=== PATIENT | female | born 1940 | race Caucasian/White ===

== ENCOUNTER → 2016-10-07 | Outpatient (CLI) | payer OTHER ==
[~2016-10-07] MED LIST: ASPCH81; ASPI-435 PO; ATEN-173 PO; ATOR-22 PO
[2016-10-07 12:45] LABS: ALT/SGPT 32 U/L (12-78); BLOOD UREA NITROGEN 17 mg/dl (7-18); BUN/CREATININE RATIO 18.3 (10-20); CARBON DIOXIDE 29 mmol/L (21-32); CHLORIDE 107 mmol/L (98-107); CHOLESTEROL 208 mg/dl (0-200); CREATININE 0.93 mg/dl (0.60-1.20); GLUCOSE 87 mg/dl (70-99); POTASSIUM 4.2 mmol/L (3.5-5.1); SODIUM 142 mmol/L (136-145); TRIGLYCERIDES 174 mg/dl (0-150); VERY LOW DENSITY LIPOPROT CALC 35 mg/dl
[2016-10-07 12:50] LABS: ALKALINE PHOSPHATASE 87 U/L (45-117); AST/SGOT 30 U/L (15-37); CHOLESTEROL/HDL RATIO 4.1; HDL CHOLESTEROL 51 mg/dl; LDL CHOLESTEROL CALCULATED 122 mg/dl
== END | disposition home or self-care (01) ==
LOC: C.LABBFT 10:10
PROVIDERS: ATTEND Nurse Practitioner
DX: E78.5 Hyperlipidemia, unspecified (principal); R31.29 Other microscopic hematuria

== ENCOUNTER → 2016-10-08 | Outpatient (CLI) | payer OTHER ==
[2016-10-08 13:33] LABS: URINE APPEARANCE CLEAR (CLEAR); URINE BILIRUBIN NEG (NEG); URINE COLOR YELLOW; URINE EPITHELIAL CELL AUTO 0-5 /lpf (0-5); URINE NITRITE NEG (NEG); UROBILINOGEN NEG (NEG)
[2016-10-08 13:34] LABS: MANUAL MICROSCOPIC REQUIRED? NO; REVIEW REQ? NO
--- NOTE | 2016-10-09 13:32 | CODING QUERY NO DIAGNOSIS ---
: 1940 TREATMENT RENDERED WITHOUT A DIAGNOSIS To promote full compliance with coding requirements relating to patient care, physician participation is requested in all cases of meteorology faculty member uncertainty. Please assist us with providing a diagnosis/symptom for the test(s) below: A diagnosis/symptom was not documented on your Order. A valid diagnosis/symptom is required to bill all insurances. Please remember that we are unable to code a diagnosis of rule out, probable, possible, questionable, or suspected. Tests that require a diagnosis: *UA CLEAN CATCH DOS: 10/08/16 DIAGNOSIS: Provider Signature: Date: Thank you Arlen Bee Health Information Management Once completed, please kindly fax back to [phone] For questions please call [phone]
== END | disposition home or self-care (01) ==
LOC: C.LABSPEC 12:51
PROVIDERS: ATTEND Nurse Practitioner
DX: I10 Essential (primary) hypertension (principal); R31.29 Other microscopic hematuria

== ENCOUNTER 2017-03-10 17:13 | Emergency (ER) | payer OTHER ==
[~2017-03-10] VITALS: Ht 154.9 cm; Wt 67.1 kg
[~2017-03-10 17:13] MED LIST changes: -ASPI-435 PO
[2017-03-10 17:15] VITALS: Ht 154.9 cm; Wt 67.1 kg
[2017-03-10] MEDS ORDERED: PROPARACAINE HCL 0.5% OP SOLN 15 ML BTL OP STA (17:24)
[2017-03-10] MEDS ORDERED: ASPI-435 PO (17:40)
--- NOTE | 2017-03-10 18:45 | EMERGENCY ROOM VISIT NOTE ---
History First contact with patient: 17:19 Chief Complaint: EYE ASSESSMENT Stated Complaint: INSULATION IN EYE History of Present Illness The patient is a 76 year old female who presents to the Emergency Room via private vehicle with complaints of "insulation in eye". The patient states that approximately 2 hours prior to arrival, she was at her home and was working on a project when she was concerned she got insulation in her eye. She then went to touch her eye and felt something go in her eye. She notes left superior eyelid irritation that feels like it's underneath the eyelid. She denies any pain but notes it's just an irritation. Feels like a scratch on the eye. The insulation color was yellow. Her tetanus is up-to-date. She denies any visual troubles. Review of Systems A complete 6-point Review of Systems was discussed with the patient, with pertinent positives and negatives listed in the History of Present Illness. All remaining Review of Systems questions can be considered negative unless otherwise specified. Past Medical/Surgical History Medical Problems: (1) Aortic regurgitation (2) Appendectomy (3) Hypercholesterolemia Family History Cancer Diabetes mellitus FHx: dementia Heart disease Hypertension Lung disease Social History Smoking Status: Never Smoker Alcohol Use: none Drug Use: none Marital Status: Housing Status: lives alone Occupation Status: retired Current/Historical Medications Scheduled Aspirin (Aspirin 81), 81 MG PO DAILY Atenolol (Tenormin), 25 MG PO DAILY Atorvastatin (Lipitor), 20 MG PO DAILY Allergies Uncoded Allergies: SOFT GELS (Allergy, Intermediate, STOMACH UPSET, MOUTH SORE, 12/02/15) Physical Exam Vital Signs Date Time Temp Pulse Resp B/P (MAP) Pulse Ox O2 Delivery O2 Flow Rate FiO2 03/10/17 19:39 36.7 80 20 190/71 95 03/10/17 19:13 80 20 190/71 03/10/17 17:15 36.7 68 18 175/75 95 Room Air Right Eye Acuity: 20/20 with correction Left Eye Acuity: 20/25 with correction Physical Exam VITAL SIGNS - Vital signs and nursing notes were reviewed. Patient is afebrile , hypertensive at 175/75, non-tachycardic and is saturating well on room air 95% . GENERAL -76-year-old female appearing her stated age. Communicates well with provider and answers questions appropriately. HEAD - Normocephalic, Atraumatic. No Bustamante's Sign or Raccoon's Eyes. No depressed skull fractures palpable. EYES - PERRL with EOMI bilaterally. Sclera without noticeable foreign body or excoriations. No injection noted in the left eye. Without subconjunctival hemorrhage. Palpebral conjunctiva pink and moist with no injection or discharge noted. Slit lamp examination performed as further described. Slit Lamp Examination was performed of the left eye(s). Alcaine drops were applied to the affected eye(s) for proper anesthetization. The affected eye(s) were stained with Fluorescein stain to precipitate adequate visualization of any conjunctival/scleral excoriations or ulcers. The patient's face was comfortably rested on the chin guard of the slit lamp apparatus. The lights were dimmed and the affected eye(s) were thoroughly examined under microscopy using the blue light. No uptake was present in the left eye. Additionally, the eye(s) were examined under microscopy using the regular light. Close examination revealed no abnormalities. Patient tolerated the procedure well and no complications were met. Medical Decision & Procedures Medications Administered Medications (Trade) Dose Ordered Sig/Shelley Route Start Time Stop Time Status Last Admin Dose Admin Proparacaine HCl (Alcaine 0.5% Oph Soln) 2 drops NOW STAT OP 03/10/17 17:24 03/10/17 17:25 DC 03/10/17 17:33 2 DROPS Medical Decision Patient presents to us today with irritation of the left superior eyelid. She states it feels as if the irritation is under the left eye lid. Consent was obtained, eyelids of the left eye were everted and were unremarkable. I examination was unremarkable. Slit lamp exam was unremarkable. Her visual acuity was excellent. I suspect that she likely had a small piece of fiberglass and to the eye and poked the left eyelid but has likely rinsed out. She rinsed her eye at home. To be safe, I do believe is reasonable to installing Rohit lens and instill 1 L of normal saline to irrigate the eye. Throughout this the patient noted irritation, and I certainly offered to stop however she noted to persist. The full liter was irrigated in the eye, and she was also evaluated by my attending. She was reevaluated and noted that she was feeling anxious during the irrigation. Her blood pressure then had gone up, and was rechecked and was still found to be elevated. She stated that she felt no symptoms of this, and denies chest pain or shortness of breath. I suspect this is likely secondary to the brief amount of anxiety she experienced during the Rohit lens. She this time appears stable for discharge, and I discussed with my attending whether or not to instill antibiotics prophylactically, and the decision was made to hold. She was educated to use saline drops in the eye for lubrication. The patient at this time appears stable for discharge, was educated upon management, educated upon the importance of follow-up with her eye doctor and if she is unable to schedule follow-up she was provided with the on-call number, and was certainly invited back to the emergency department with any new/concerning symptoms. I again suspect she is likely experiencing irritation of the left eyelid secondary to acute trauma. I do not suspect any emergent abnormalities at this time. She is to follow up for the elevated blood pressure. IMPRESSION: Eye Pain In the evaluation and treatment of this patient, the following differential diagnoses were considered: Corneal Abrasion, Conjunctivitis, Eye Contusion, Globe Injury, Orbital Floor Injury (Blowout Fracture), Corneal Ulcer, Keratitis , Herpes Zoster Opthalmic, Blepharitis, Orbital Cellulitis, Iritis, Scleritis/ Episcleritis, Uveitis, Temporal Arteritis, Subconjunctival Hemorrhage. Impression Primary Impression: Eye irritation Departure Information Dispostion Home / Self-Care Condition GOOD Referrals Kirit Finn M.D. (PCP) Mekhi England M.D. Patient Instructions My New [facility] Additional Instructions You have been treated in the Emergency Department for left eye irritation after insulation exposure. For pain control, you can use the following [id number] medicines (if >12 yo): - Regular strength (325mg/tab) Tylenol (acetaminophen) 2 tabs every 4-6 hours as needed. Do not exceed 12 tablets in a 24 hour period. Avoid taking more than 3 grams (3000 mg) of Tylenol per day. This includes any other sources of acetaminophen you may take on a regular basis. - Regular strength (200 mg/tab) Advil (ibuprofen) 1-2 tabs every 4-6 hours as needed. Do not exceed a dose of 3200 mg per day. Avoid rubbing your eyes for the next few days as this can cause irritation. Wear sunglasses when outside to help minimize your pain. You should relax in a quiet, dark room to help minimize your symptoms. You should seek evaluation of your left eye irritation by an horizontal boring mill operator following your visit to the Emergency Department. The Emergency Department is not capable of treating optic issues long-term. You should call your horizontal boring mill operator as soon as possible to make an appointment for evaluation of your follow-up care. Return to the emergency department if you develop the following symptoms despite treatment course outlined above: blurry vision, loss of vision, fever, intractable pain, increased redness, swelling, or purulent discharge. Please follow-up with your family doctor for elevated blood pressure. Please obtain the emergency department with any new/concerning symptoms.
[2017-03-10 19:39] VITALS: BP 190/71; PULSE 80; TEMP 36.7; O2SAT 95
--- NOTE | 2017-03-11 00:01 | EMERGENCY ROOM VISIT NOTE ---
ED Visit Note First contact with patient: 17:19 I have personally seen and evaluated the patient with the PA. I agree with the diagnosis and management decisions and have been personally involved in the case. Please see Jeremy Carnes PA-C's notes for further details of the history, physical and visit.
== END 2017-03-10 19:40 | disposition home or self-care (01) ==
LOC: C.EDB 17:14 → C.EDD 19:40
DX: H57.8 Other specified disorders of eye and adnexa (principal); H57.12 Ocular pain, left eye; I35.1 Nonrheumatic aortic (valve) insufficiency; E78.00 Pure hypercholesterolemia, unspecified; Z80.9 Family history of malignant neoplasm, unspecified; Z83.3 Family history of diabetes mellitus; Z82.49 Family history of ischemic heart disease and other diseases of the circulatory system; Z83.6 Family history of other diseases of the respiratory system; Z79.82 Long term (current) use of aspirin; Z79.899 Other long term (current) drug therapy

== ENCOUNTER → 2017-03-19 | Outpatient (CLI) | payer OTHER ==
[~2017-03-19] MED LIST changes: -ASPCH81; +ASPI-435 PO
[2017-03-19 12:42] LABS: ALT/SGPT 25 U/L (12-78); BLOOD UREA NITROGEN 18 mg/dl (7-18); BUN/CREATININE RATIO 16.4 (10-20); CARBON DIOXIDE 27 mmol/L (21-32); CHLORIDE 109 mmol/L (98-107); CHOLESTEROL 203 mg/dl (0-200); GLUCOSE 91 mg/dl (70-99); POTASSIUM 4.5 mmol/L (3.5-5.1); SODIUM 142 mmol/L (136-145); TRIGLYCERIDES 239 mg/dl (0-150); VERY LOW DENSITY LIPOPROT CALC 48 mg/dl
[2017-03-19 12:46] LABS: ALKALINE PHOSPHATASE 90 U/L (45-117); AST/SGOT 28 U/L (15-37); CHOLESTEROL/HDL RATIO 4.3; HDL CHOLESTEROL 47 mg/dl; LDL CHOLESTEROL CALCULATED 108 mg/dl
[2017-03-19 12:49] LABS: CALCIUM 9.2 mg/dl (8.5-10.1)
== END | disposition home or self-care (01) ==
LOC: C.LABBFT 09:21
PROVIDERS: ATTEND Nurse Practitioner
DX: E78.5 Hyperlipidemia, unspecified (principal); M85.80 Other specified disorders of bone density and structure, unspecified site

== ENCOUNTER → 2017-04-18 | Outpatient (CLI) | payer OTHER ==
--- NOTE | 2017-04-18 12:19 | MAMMOGRAPHY REPORT ---
BILATERAL DIGITAL SCREENING MAMMOGRAM WITH CAD: 04/18/2017 CLINICAL HISTORY: Routine screening. Patient has no complaints. TECHNIQUE: Bilateral CC and MLO views were obtained. Current study was also evaluated with a Compute r Aided Detection (CAD) system. COMPARISON: Comparison is made to exams dated: 04/10/2016 mammogram, 04/06/2015 mammogram, 03/29/2014 rosalind mogram, 03/23/2013 mammogram, 03/17/2012 mammogram, and 03/11/2011 mammogram - [facility]. BREAST COMPOSITION: There are scattered areas of fibroglandular density in both breasts. FINDINGS: An asymmetry in the lateral right breast is stable dating back to 03/17/2012. In the 2010 exam there was a circumscribed mass associated with the asymmetry which has since resolved, most like ly represented a fluctuating cyst. There are mild vascular calcifications bilaterally. No new suspi cious mass, architectural distortion or cluster of microcalcifications is seen. IMPRESSION: ACR BI-RADS CATEGORY 1: NEGATIVE There is no mammographic evidence of malignancy. A 1 year screening mammogram is recommended. The pa tient will receive written notification of the results. Approximately 10% of breast cancers are not detected with mammography. A negative mammographic report should not delay biopsy if a clinically suggestive mass is present. Eloisa Reich M.D. ay/:04/18/2017 09:56:41 Blanket Cutting Machine Operator: Jesika GLEASON)(Laura), [facility] letter sent: Normal 1/2 BI-RADS Code: ACR BI-RADS Category 1: Negative
== END | disposition home or self-care (01) ==
LOC: C.MAMM 08:44
PROVIDERS: ATTEND Internal Medicine
DX: Z12.31 Encounter for screening mammogram for malignant neoplasm of breast (principal)

== ENCOUNTER → 2017-09-18 | Outpatient (CLI) | payer OTHER ==
[2017-09-18 12:59] LABS: LYME DISEASE AB IGG NEG (NEG)
[2017-09-18 13:01] LABS: LYME DISEASE AB IGM EQUIVOCAL (NEG)
[2017-09-24 09:51] LABS: 18KDIGG BAND NONREACTIVE (NONREACTIVE); 23KDIGG BAND NONREACTIVE (NONREACTIVE); 23KDIGM BAND NONREACTIVE (NONREACTIVE); 28KDIGG BAND NONREACTIVE (NONREACTIVE); 30KDIGG BAND NONREACTIVE (NONREACTIVE); 39KDIGG BAND NONREACTIVE (NONREACTIVE); 39KDIGM BAND NONREACTIVE (NONREACTIVE); 41KDIGG BAND NONREACTIVE (NONREACTIVE); 41KDIGM BAND NONREACTIVE (NONREACTIVE); 45KDIGG BAND NONREACTIVE (NONREACTIVE); 58KDIGG BAND NONREACTIVE (NONREACTIVE); 66KDIGG BAND NONREACTIVE (NONREACTIVE); 93KDIGG BAND NONREACTIVE (NONREACTIVE)
== END | disposition home or self-care (01) ==
LOC: C.LABBFT 10:50
PROVIDERS: ATTEND Physician Assistant Medical
DX: E78.5 Hyperlipidemia, unspecified (principal); E55.9 Vitamin D deficiency, unspecified; I10 Essential (primary) hypertension; R21 Rash and other nonspecific skin eruption

== ENCOUNTER → 2017-10-16 | Outpatient (CLI) | payer OTHER ==
[2017-10-16 12:50] LABS: BASO ABS # 0.06 K/uL (0-0.2); EOS ABS # 0.36 K/uL (0-0.5); HEMATOCRIT 45.7 % (37-47); HEMOGLOBIN 15.5 g/dL (12.0-16.0); IG# 0.01 K/uL (0.00-0.02); LYMPH % 31.6 %; MEAN CELL VOLUME 91.2 fL (80-100); MEAN CORPUSCULAR HEMOGLOBIN 30.9 pg (25-34); MEAN CORPUSCULAR HGB CONC 33.9 g/dl (32-36); MEAN PLATELET VOLUME 9.4 fL (7.4-10.4); MONO % 7.5 %; MONO ABS # 0.45 K/uL (0.11-0.59); NEUT % 53.7 %; NEUT ABS # 3.23 K/uL (1.4-6.5); PLATELET COUNT 298 K/uL (130-400); RED CELL DISTRIBUTION WIDTH SD 43.2 fL (36.4-46.3); WHITE BLOOD COUNT 6.01 K/uL (4.8-10.8)
== END | disposition home or self-care (01) ==
LOC: C.LABBFT 09:16
PROVIDERS: ATTEND Internal Medicine
DX: E78.5 Hyperlipidemia, unspecified (principal); I10 Essential (primary) hypertension; M85.80 Other specified disorders of bone density and structure, unspecified site; E55.9 Vitamin D deficiency, unspecified

== ENCOUNTER → 2017-10-23 | Outpatient (CLI) | payer OTHER | END | disposition home or self-care (01) | LOC: C.PAPS 12:41 | PROVIDERS: ATTEND Nurse Practitioner | DX: Z00.00 Encounter for general adult medical examination without abnormal findings (principal); Z12.4 Encounter for screening for malignant neoplasm of cervix ==

== ENCOUNTER → 2017-10-23 | Outpatient (CLI) | payer OTHER | END | disposition home or self-care (01) | LOC: C.LABBFT 11:18 | PROVIDERS: ATTEND Nurse Practitioner | DX: R63.5 Abnormal weight gain (principal) ==

== ENCOUNTER → 2017-11-14 | Outpatient (CLI) | payer OTHER ==
--- NOTE | 2017-11-14 09:49 | DIAGNOSTIC IMAGING REPORT ---
R PELVIS/UNILATERAL HIP 2-3VIEWS HISTORY: 77 years-old Female RIGHT HIP PAIN acute right hip pain COMPARISON: None available TECHNIQUE: AP view of the pelvis with 2 views of the right hip FINDINGS: Mild degenerative changes are seen within the bilateral femoral acetabular joints. Degenerative changes are noted within the imaged lower lumbar spine, pubic symphysis and SI joints as well. There is no acute fracture or subluxation identified. Imaged right femur appears intact. Punctate calcifications of the lower pelvis suggest phleboliths. IMPRESSION: Mild degenerative changes about the bilateral hips without acute fracture or dislocation. The above report was generated using voice recognition software. It may contain grammatical, syntax or spelling errors. Electronically signed by: Tony Jernigan M.D. 11/14/2017 9:47 AM Dictated Date/Time: 11/14/2017 9:38 AM
== END | disposition home or self-care (01) ==
LOC: C.RAD1850 09:28
PROVIDERS: ATTEND Nurse Practitioner
DX: M25.551 Pain in right hip (principal)

== ENCOUNTER → 2018-05-07 | Outpatient (CLI) | payer OTHER ==
[~2018-05-07] MED LIST changes: +AMOX500C3 PO
== END | disposition home or self-care (01) ==
LOC: C.LABBFT 14:13
PROVIDERS: ATTEND Internal Medicine
DX: T14.8XXA Other injury of unspecified body region, initial encounter (principal); W57.XXXA Bitten or stung by nonvenomous insect and other nonvenomous arthropods, initial encounter

== ENCOUNTER 2021-02-01 07:51 | Observation (INO) ==
--- NOTE | 2021-01-09 15:19 | PAT Medication Instructions ---
Medication Instructions Date of Service January 09, 2021 Home Medications Medication Instructions Recorded lisinopril 5 mg tablet 5 mg PO DAILY #30 tab 10/16/20 atenolol 25 mg tablet 25 mg PO HS #90 tab 12/21/20 cholecalciferol (vitamin D3) 50 mcg (2,000 unit) tablet 2,000 units PO HS aspirin [Aspirin Low Dose] 81 mg PO HS lisinopril 5 mg tablet 5 mg PO DAILY atenolol 25 mg tablet 25 mg PO HS acetaminophen [Tylenol] 325 mg PO QID PRN atorvastatin 10 mg PO UD Continue as directed atorvastatin 10 mg PO UD DO NOT take the morning of surgery lisinopril 5 mg tablet 5 mg PO DAILY Take morning of surgery With a small sip of water, OTHERWISE NOTHING TO EAT OR DRINK AFTER MIDNIGHT: acetaminophen [Tylenol] 325 mg PO QID PRN (okay to take up to 4 hours prior to surgery if needed) Take evening before surgery cholecalciferol (vitamin D3) 50 mcg (2,000 unit) tablet 2,000 units PO HS aspirin [Aspirin Low Dose] 81 mg PO HS atenolol 25 mg tablet 25 mg PO HS acetaminophen [Tylenol] 325 mg PO QID PRN (if needed) Other Notes If you have any questions please call us at [phone] or [phone] or [phone] or [phone]
--- NOTE | 2021-01-10 14:09 | Anesthesiology Consultation ---
Date of Service January 10, 2021 Assessment & Plan (1) Encounter for pre-operative examination: Chart Review Chart Review: Pending: Refer to Additional Notes / Consult section (pending surgeon ordered PCP/cardio clearance, UA, and preop Covid testing ) and Patient seen in Pre Admission Testing Awaiting surgeon ordered PCP (01/15) and cardio (01/11) clearances Pt could not void at PAT - pt given orders and supplies and will drop off UA on 01/11/21 Per [facility] appt on 01/10/21, pt resides in [facility]. Denies recent travel. Uses PPE. Did receive first Covid vaccine. No known Covid positive contacts or Covid related symptoms. Pt denies any known Covid infection in the past 90 days. Educated patient to follow up with surgeon's office regarding Covid testing. Educated on importance of self quarantining, social distancing and wearing mask in public both for the patient and household contacts. Teaching & Discussion Pre-Anesthesia Teaching/Discussion Notes: Instructed NPO after midnight before surgery,except medications with 15 cc of water. Medication instructions provided according to the [facility] guidelines. History Surgery Operation Date: 02/01/21 10:35 Proposed Procedures p Right Total Hip Arthroplasty - George Wolf MD Height/Weight Height: 5 ft 1 in Weight: 67.5 kg Allergies Allergy/AdvReac Type Severity Reaction Status Date / Time amoxicillin AdvReac Mild Nausea Verified 01/09/21 14:02 Medications Home Medications Medication Instructions Recorded Confirmed Last Taken cholecalciferol (vitamin D3) 50 2,000 units PO HS #30 tab 03/02/19 01/09/21 10/05/20 mcg (2,000 unit) tablet aspirin [Aspirin Low Dose] 81 mg PO HS 06/28/19 01/09/21 10/05/20 lisinopril 5 mg tablet 5 mg PO DAILY #30 tab 10/16/20 01/09/21 Unknown atenolol 25 mg tablet 25 mg PO HS #90 tab 12/21/20 01/09/21 Unknown acetaminophen [Tylenol] 325 mg PO QID PRN 01/09/21 01/09/21 Unknown Past Medical History Medical History Aortic regurgitation Follows with Dr. Arce. Mild AR per 05/10/20 ECHO GERD (gastroesophageal reflux disease) Only with certain with medications Hyperlipidemia No currently taking statin - PCP aware per patient Hypertension Osteoarthritis Osteopenia Exercise / Class Metabolic Activity III < 4 Walking/Shop/Light housework (no chest pain or SOB with flat surface ambulation ) Past Family History Family History Mother Breast cancer Father Dementia Grandmother (Maternal) Myocardial infarction Denies family history of Ovarian cancer Prostate cancer Colorectal cancer Past Surgical History Surgical History History of colonoscopy History of left cataract surgery Hx of tonsillectomy Hx of tubal ligation S/P appendectomy Past Anesthesia History No Hx of Anesthesia Complications (with exception to cataract surgery (2019- feels she had memory issues afterwards ) and No Family Hx of Anesthesia Complications History of PONV No Hx of PONV and No Hx of Motion Sickness Social History Smoking Status: Never smoker Do You Dip or Chew Tobacco: No Hx Alcohol Use: No Hx Substance Use: No substance use type: does not use Review of Systems Occ cough secondary to post nasal drip - no current issues Occ reflux - secondary to medications Patient denies chest pain, shortness of breath, dyspnea on exertion, wheezing, palpitations. No hx of seizures, stroke, CT, apnea/snoring. No hx of blood clots or blood transfusions Physical Exam Vital Signs VITALS BP 140/63 P 66 TEMP 98.2 SP02 95% RESP 16 Constitutional no acute distress ENMT Mouth: no TMJ clicking Thyromental Distance: > or= 3.5 Finger Breadths (3.5) Mallampati Class: I Crowns to top front teeth Partial upper denture Missing molars Neck neck extension not limited Respiratory normal respiratory effort; no respiratory distress Auscultation: lungs clear to auscultation bilaterally; no wheezes Cardiovascular Rate/Rhythm: regular rate and regular rhythm Heart Sounds: no murmur Vessels: no carotid bruit Musculoskeletal Spine: no pain with cervical ROM Extremities: extremities normal to inspection Psychiatric Orientation: alert Testing Laboratory Results 01/10/21 14:35 01/10/21 14:35 PT 10.3 Seconds (9.0-12.0) 01/10/21 14:35 INR 1.0 (0.9-1.1) 01/10/21 14:35 Blood Type AB Positive 01/10/21 14:35 Antibody Screen NEGATIVE 01/10/21 14:35 Electrocardiogram Date: 10/06/20 Findings: + NSR @ (74bpm) Moderate voltage criteria LVH, may be normal variant. No significant change from July 22, 2019 per cardio. Chest X-Ray Date: 10/06/20 The heart is normal in size. There is aortic tortuosity. There is mild diffuse interstitial thickening. There is no focal pulmonary consolidation. There are no significant pleural effusions Echocardiogram Date: 05/08/20 EF: 65-70% LV Function: normal RWMA: + none Other Findings: + diastolic dysfunction (Grade I ) Valvular Disease: + AI (mild) Mild TR. Mild CO. No significant change from 04/02/17 study. Other Testing Neck CTA 10/06/20= No evidence of hemodynamically significant carotid or vertebral artery stenosis. No evidence of dissection.
[2021-01-10 14:56] LABS: Basophils # (auto) 0.02 K/uL (0-0.2); Basophils % (auto) 0.3 %; Eosinophils % (auto) 1.4 %; Hematocrit (blood only) 42.8 % (37-47); Hemoglobin 14.5 g/dL (12.0-16.0); Immature Granulocytes # (auto) 0.01 K/uL (0.00-0.02); Immature Granulocytes % (auto) 0.1 %; Lymphocytes # (auto) 2.14 K/uL (1.2-3.4); Mean Corpuscular Hemoglobin 30.1 pg (25-34); Mean Corpuscular Hgb Conc 33.9 g/dL (32-36); Mean Corpuscular Volume 88.8 fL (80-100); Mean Platelet Volume 8.9 fL (7.4-10.4); Monocytes % (auto) 4.1 %; Neutrophils % (auto) 65.1 %; Platelet Count 288 K/uL (130-400); RDW Coefficient of Variation 13.3 % (11.5-14.5); RDW Standard Deviation 43.5 fL (36.4-46.3); Red Blood Count 4.82 M/uL (4.2-5.4); White Blood Count 7.37 K/uL (4.8-10.8)
[2021-01-10 15:09] LABS: Prothrombin Time 10.3 Seconds (9.0-12.0)
--- NOTE | 2021-01-10 15:35 | History & Physical Report ---
Date of Service January 10, 2021 Assessment & Plan Admission and Anticipated Discharge Date Admission Date: PRE-OP Diagnosis: Right hip osteoarthritis Planned Procedure: Right total hip arthroplasty Plan: Patient is scheduled to undergo this procedure at the [facility] with Dr. George Wolf on February 01, 2021. Risks and complications of the procedure such as: Infection, bleeding, pain, scarring, nerve blood vessel damage, weakness, wound problems, stiffness, incomplete relief of symptoms, hardware failure, hardware loosening, wear, fracture, tendon or ligament injury, dislocation, leg length inequality, blood clots, embolism, heart attack, stroke and were explained to the patient at her visit on February [address] Wolf. Informed consent form the procedure was obtained. Patient also understands risks of proceeding with surgical intervention during the COVID-19 pandemic. Currently she is asymptomatic and understands that she will need to be tested 1 week prior to surgery. Patient states that she has an appointment with [facility] physician group cardiology tomorrow for clearance and is scheduled to meet with her primary care provider Dr. Finn on January 15 for preoperative clearance as well. She has a scheduled appointment with anesthesia at the hospital after her appointment with me this morning and while there she will obtain a CBC with differential, complete metabolic panel, PT/INR, blood type and screen, urinalysis, urine culture and sensitivity, EKG, hemoglobin A1c and a nasal culture for MRSA. During today's visit we reviewed the total hip packet, discussed discharge planning, talked about antibiotic prophylaxis before dental procedures. I provided patient with paperwork to obtain a handicap placard for her vehicle. Discussed lectures offered by [facility] in regards to joint replacement surgery via a Zoom meeting. We reviewed total hip precautions, talked about abduction pillow use. Advised the patient she will need to obtain a standard walker, a raised toilet seat, shower chair and a total hip kit. She states that she will need orders for these and will obtain them at [facility]. I advised the patient she will be discharged from the hospital with the narcotic pain medication, and anti- inflammatory. I also educated her about the use of baby aspirin twice daily for DVT prophylaxis, and use of [id number] strength Tylenol for supplemental pain control following surgery. Patient states she will most likely obtain in- home physical therapy for the first 2 weeks postoperatively. After her visit with me on February 16 at 1:30 PM we will implement outpatient physical therapy and provide her with her rehab protocol. Patient verbalized understanding of all information provided during today's visit. She thanks for the care that she received. If she has questions or concerns prior to her surgery, she will contact the clinic. History of Present Illness Chief Complaint: Chief Complaint: Right hip pain Primary Care Provider: Kirit Finn MD History of Present Illness (including history relevant to procedure): This 80-year-old female presents the clinic today for preoperative history and physical. The patient is very active shoveling snow, mowing lawn, and exercising. She enjoys going out in the [place]. She says about a 2 and half ago, she started getting pain in her groin. This is progressively worsening. Over the past year, she has developed some burning in the medial aspect of her right thigh. She says a couple times per week when she is walking, she will feel like her leg is going to give out. It also bothers her getting up from sitting position. She has some difficulty navigating steps. She has continued to be active despite this. She takes Advil as she has found that this is more effective than Tylenol. However, she does not like to take a lot of medications , so only does this sparingly. She has been to physical therapy in the past, but felt like that was not really helping. Since the last visit, she says her symptoms are worsening. Continues to have predominantly groin pain. It is affecting her activities of daily living. She would like to proceed with a hip replacement. Review Of Systems: A 14 point review systems performed is unremarkable except for those things previously stated in the HPI and past medical history. Past Medical History: Problems: Pre-op exam Arthritis of right hip Plica of knee Right knee pain Hypertension Hyperlipidemia Heart murmur Procedure History Procedure Procedure Date Comments Cataract surgery 2019 - bilateral Appendectomy 1956 Allergies and Sensitivities: NKA Family history: Heart disease, hypertension, cancer and diabetes Social history: Completely unremarkable Current Home Meds: (Last Updated 01/10 11:03) aspirin (Aspirin Low Strength 81 mg oral enteric coated tablet) 81 mg PO Daily atenolol (atenolol 25 mg oral tablet) 25 mg PO Daily atorvastatin (Lipitor 20 mg oral tablet) 40 mg PO Daily cholecalciferol (Vitamin D3) takes one daily ibuprofen lisinopril Initial Wt: 01/10 68.0 kg 150 lb Allergies Allergy/AdvReac Type Severity Reaction Status Date / Time amoxicillin AdvReac Mild Nausea Verified 01/09/21 14:02 Home Medications Medication Instructions Recorded Confirmed Type cholecalciferol (vitamin D3) 50 2,000 units PO HS #30 tab 03/02/19 01/09/21 History mcg (2,000 unit) tablet aspirin [Aspirin Low Dose] 81 mg PO HS 06/28/19 01/09/21 History lisinopril 5 mg tablet 5 mg PO DAILY #30 tab 10/16/20 01/09/21 Rx atenolol 25 mg tablet 25 mg PO HS #90 tab 12/21/20 01/09/21 Rx acetaminophen [Tylenol] 325 mg PO QID PRN 01/09/21 01/09/21 History Past Med/Surg History Medical History Aortic regurgitation Follows with Dr. Arce. Mild AR per 05/10/20 ECHO GERD (gastroesophageal reflux disease) Only with certain with medications Hyperlipidemia No currently taking statin - PCP aware per patient Hypertension Osteoarthritis Osteopenia Surgical History History of colonoscopy History of left cataract surgery Hx of tonsillectomy Hx of tubal ligation S/P appendectomy Family History Mother Breast cancer Father Dementia Grandmother (Maternal) Myocardial infarction Denies family history of Ovarian cancer Prostate cancer Colorectal cancer Social History Smoking Status: Never smoker Second Hand Exposure: No; Do You Dip or Chew Tobacco: No; Tobacco Cessation Education Requested by Patient: No Hx Alcohol Use: No Hx Substance Use: No Preferred Language: Iraqi Communication Ability: Effective Visual Impairment: Limited Hearing Ability: Normal Law Reporter Required: No Beliefs That Will Affect Care: None marital status: Current Living Situation: Alone Current Living Situation Comment: Daughter intermittently lives with the patient. current occupational status: retired current occupation: daycare worker Other Information That Helps Us Care for You: No Feels Safe at Home: Yes Safety Concerns: Feels Safe At This Time Childhood Exposure to Second-Hand Smoke: Yes Diet Comment: does drink lactose milk caffeine: Yes (1 cup coffee) during the past year weight has: remained stable Dental Care, Regularly: Yes Physical Activity Frequency: Daily Physical Activity Frequency Comment: Arthritis limits activity Seatbelt Use: always Sunscreen Use: No Assistive Devices: None Review of Systems All systems reviewed & are unremarkable except as noted in HPI & below Physical Exam Physical Exam: Physical Exam: (relevant to the procedure, including heart and lung evaluation) General: Alert and oriented x3 with proper grooming and hygiene Eyes: Pupils are equal reactive to light with accommodation. Extraocular movements are intact Throat: Deferred due to COVID-19 precautions Cardiac: Regular rate and rhythm with a grade 1/6 holosystolic murmur heard best in the left upper sternal border Lungs: Clear to auscultation throughout with no wheezing, rales or rhonchi Abdomen: Mildly obese, nondistended, nontender with normal active bowel sounds Extremities: Right hip exam; hip flexion up to 120 degrees, external rotation is limited in seated position to 30 degrees, and internal rotation of 15 degrees. Neurovascular intact. Neuro: Cranial nerves II through XII are intact with no motor or sensory deficit Skin: Normal in appearance with no open skin areas or discharge Results & Data ([facility]) Laboratory Results Lab Results 01/10/21 01/10/21 Range/Units 14:35 14:35 WBC 7.37 (4.8-10.8) K/uL RBC 4.82 (4.2-5.4) M/uL Hgb 14.5 (12.0-16.0) g/dL Hct 42.8 (37-47) % MCV 88.8 (80-100) fL MCH 30.1 (25-34) pg MCHC 33.9 (32-36) g/dL RDW Std Deviation 43.5 (36.4-46.3) fL RDW Coeff of Yasir 13.3 (11.5-14.5) % Plt Count 288 (130-400) K/uL MPV 8.9 (7.4-10.4) fL Immature Gran % (Auto) 0.1 % Neut % (Auto) 65.1 % Lymph % (Auto) 29.0 % Hickman % (Auto) 4.1 % Eos % (Auto) 1.4 % Baso % (Auto) 0.3 % Neut # (Auto) 4.80 (1.4-6.5) K/uL Lymph # (Auto) 2.14 (1.2-3.4) K/uL [place]ickman # (Auto) 0.30 (0.11-0.59) K/uL Eos # (Auto) 0.10 (0-0.5) K/uL Baso # (Auto) 0.02 (0-0.2) K/uL Immature Gran # (Auto) 0.01 (0.00-0.02) K/uL PT 10.3 (9.0-12.0) Seconds INR 1.0 (0.9-1.1) Diagnostic Findings Studies (relevant to the procedure): X-rays, 3 views of the right hip done show [id number] arthritis in the right hip affecting the superolateral joint space.
[2021-01-10 16:12] LABS: BUN Creatinine Ratio 22.7 (10-20); Calcium 8.8 mg/dl (8.5-10.1); Creatinine Clr Calc Pharmacy 41.6 ml/min; Est GFR (Non-African American) 55.3
[2021-01-11 06:12] LABS: Estimated Average Glucose 117 mg/dl; Hemoglobin A1C 5.7 % (4.5-5.6)
[~2021-02-01 07:51] MED LIST changes: +ACETAMINOPHEN 500 MG TAB PO SCH; -AMOX500C3 PO; -ASPI-435 PO; -ATEN-173 PO; -ATOR-22 PO; +BUPIVACAINE 0.5 % 5 MG/1 ML PF 10ML VIAL ONE; +CeleBREX 200 MG CAP PO SCH; +FAMOTIDINE 20 MG TAB PO SCH; +LR 500ML BOLUS, THEN 15ML/HR IV SCH; +LR 60ML/HR IV SCH; +METOCLOPRAMIDE HCL 10 MG TABLET PO SCH; +ROPIVACAINE 0.5% HCL/PF 150 MG, BUPIVACAINE 0.75% MPF 20 ML, EPINEPHrine 0.15 MG, Ketor... INFIL SCH; +Scopolamine 1 MG TDSY TD SCH; +TRANEXAMIC ACID 1,000 MG **IV Intra-op IV SCH; +TRANEXAMIC ACID 1,000 MG **IV Pre-op IV SCH; +ceFAZolin 2000MG 2,000 MG/15 ML SYR IV SCH; +dexAMETHasone 4 MG TAB PO SCH; +traMADol HCL 50 MG TABLET PO SCH
[2021-02-01] MEDS ORDERED: LIDOCAINE HCL 2% 2 ML VIAL/AMP(20MG/ML) INFIL ONE (09:21)
[2021-02-01] MEDS ORDERED: PROPOFOL IV EMULSION 10 MG/ML 20 ML VIAL IV ONE (09:21)
[2021-02-01] MEDS ORDERED: fentaNYL citrate 100 MCG/2 ML VIAL ONE (09:21)
[2021-02-01] MEDS ORDERED: MIDAZOLAM HCL 1 MG/ML 2ML VIAL ONE (09:21)
[2021-02-01] MEDS ORDERED: ONDANSETRON INJ 2 MG/ML 2 ML VIAL IV PRN ×2 (09:48→12:59)
[2021-02-01] MEDS ORDERED: ATROPINE SULFATE 0.1 MG/ML 10ML SYR IV PRN (09:48)
[2021-02-01] MEDS ORDERED: fentaNYL citrate 100 MCG/2 ML VIAL IV PRN (09:48)
[2021-02-01] MEDS ORDERED: ePHEDrine sulfate 50 MG/ML AMP IV PRN (09:48)
[2021-02-01] MEDS ORDERED: HYDROmorphone INJ 2 MG/ML SYR/VIAL IV PRN (09:48)
--- NOTE | 2021-02-01 10:43 | History & Physical Bridge Note ---
Date of Service February 01, 2021 History & Physical Bridge Note I have examined the patient, reviewed the History & Physical and in the interval since the performance of the History & Physical I have noted the following changes of clinical significance: no changes noted
[2021-02-01] MEDS ORDERED: ORTHO JOINT ANESTHETIC ONE (11:07)
[2021-02-01] MEDS ORDERED: ePHEDrine sulfate 50 MG/ML SYR ONE (12:27)
[2021-02-01] MEDS ORDERED: PHENYLEPHRINE 100MCG/ML 5ML SYR ONE (12:27)
[2021-02-01] MEDS ORDERED: bisacodyL 10 MG SUPP PR PRN (12:59)
[2021-02-01] MEDS ORDERED: ALUMINUM/MAGNESIUM SUSP 30 ML UDC PO PRN (12:59)
[2021-02-01] MEDS ORDERED: NALOXONE HCL 0.4 MG/1 ML VIAL/CARP IV PRN (12:59)
[2021-02-01] MEDS ORDERED: METOCLOPRAMIDE HCL INJ 5 MG/ML 2 ML VIAL IV PRN (12:59)
[2021-02-01] MEDS ORDERED: diphenhydrAMINE 50 MG/ML VIAL IV PRN (12:59)
[2021-02-01] MEDS ORDERED: MAGNESIUM HYDROXIDE SUSP 30 ML UDC PO PRN (12:59)
[2021-02-01] MEDS ORDERED: oxyCODONE HCL IR 5 MG TAB (IMMEDIATE RELEASE) PO PRN (12:59)
[2021-02-01] MEDS ORDERED: HYDROmorphone INJ 0.5 MG/0.5 ML SYR IV PRN (12:59)
--- NOTE | 2021-02-01 12:59 | Operative Report ---
Post Operative Report Pre & Post Diagnosis Operation Date: 02/01/21 10:35 Pre-Op Diagnosis: Right Hip Osteoarthritis Post-Op Diagnosis: Right Hip Osteoarthritis Operation Date: 02/01/21 12:35 <No data on this case meets the specified criteria> I identified the patient and participated in the time-out.: Yes Procedure Operation Date: 02/01/21 10:35 Actual Procedures p Right Total Hip Arthroplasty(Right) - George Wolf MD Operation Date: 02/01/21 12:35 <No data on this case meets the specified criteria> Surgeon George Wolf MD Wearing Apparel Presser Thais Chandler PA-C Estimated Blood Loss 50 Findings Consistent with Post-Op Diagnosis Specimens right femoral head Complications none Disposition Accompanied Patient To Recovery: No Disposition: Recovery Room Description of Procedure I was present during the entire case assisting with positioning, prepping, draping, wound retraction, wound closure and dressing application. No fellow present. Please see Dr. Wolf procedure note for specifics of the case. I attest to the content of the Intraoperative Record and any orders documented therein. Any exceptions are noted below.
--- NOTE | 2021-02-01 13:00 | Operative Report ---
Post Operative Report Pre & Post Diagnosis Operation Date: 02/01/21 10:35 Pre-Op Diagnosis: Right Hip Osteoarthritis Post-Op Diagnosis: Right Hip Osteoarthritis Operation Date: 02/01/21 12:35 <No data on this case meets the specified criteria> I identified the patient and participated in the time-out.: Yes Procedure Operation Date: 02/01/21 10:35 Actual Procedures p Right Total Hip Arthroplasty(Right) - George Wolf MD Operation Date: 02/01/21 12:35 <No data on this case meets the specified criteria> Surgeon George Wolf MD Software Test Technician IRVING Chandler PA-C. No resident or fellow was available to assist. Estimated Blood Loss 100 Findings Consistent with Post-Op Diagnosis Specimens Femoral head, right Anesthesia Type Spinal MAC Complications none Disposition Accompanied Patient To Recovery: No Indications 80-year-old female with right hip pain refractory to conservative management. X-rays demonstrate naah-uh-ojym arthritis. I had a long discussion with her about the risks and benefits of surgery, alternatives to surgery, and expected outcomes. After reviewing all these patient elected to proceed. All questions were answered. Informed consent was signed. Description of Procedure Patient was identified in the preoperative holding area and the surgical site, right hip, was marked. A spinal anesthetic was placed, then the patient was brought back to the main operating room, placed in the operating table and moved into the lateral decubitus position. Axillary roll was placed. All bony prominences were padded. Perioperative antibiotics and tranexamic acid 1 gram IV were administered. Operative extremity was prepped and draped in the normal sterile fashion. Prior to incision a multidisciplinary timeout was called. All in the room were in agreement. We began by making an incision for a posterior approach to the hip. We dissected down through subcutaneous tissues to the level of the fascia. The fascia was incised in line with the incision. Charnley bow was placed. The trochanteric bursa was excised. The piriformis and short external rotators were dissected off the posterior aspect of the hip. A box cut was made in the capsule. The femoral head was dislocated. The femoral neck cut was made at our preoperative template. The acetabulum was then exposed. The labrum was sharply excised. Contents of the cotyloid fossa were removed with electrocautery. We then began reaming at a size 8 mm less than our preoperative template. We reamed up by [address] the way up to a size 50 mm cup. This gave us good bleeding cancellus bone circumferentially. The acetabulum was then irrigated out and dried. The real Marvell Gription cup was then impacted down into position with 45 degrees of lateral opening and 25 degrees of anteversion. A single cancellous bone screw was placed up into the ilium. Excellent fixation was obtained. An Altrx polyethylene liner for a 32 mm femoral head was then impacted into the shell. The locking mechanism was checked to ensure that it had engaged which it had. Next we turned our attention to the femur. The lateral neck was removed with a box osteotome. Intramedullary guide was used followed by the lateralizing reamer. We then reamed up to a size 4 Mesa stem. We then broached all the way up to a size 3. We began trialing with a high offset neck and a +5 head. Hip was reduced. Leg lengths were symmetric. The hip was stable in extension and external rotation, and stable in the sleeper position. At 90 degrees of hip flexion the hip could be internally rotated 65 degrees before levering out of the cup. I was very happy with the stability exam. Therefore the hip was dislocated and the femoral trial was removed. The femoral canal was irrigated and dried. The real size 3 high offset Mesa femoral stem was opened up. This was impacted down into position. It sat 3 mm higher than the femoral trial, so the +1 head was trialed. Stability exam was the same as above. Therefore, the 32 mm ceramic femoral head with a +1 mm offset was opened up and gently impacted down onto the trunnion. The hip was atraumatically reduced. Another 1 gram of IV tranexamic acid was started prior to closure. The wound was irrigated out with sterile Betadine solution. The periarticular injection cocktail was then placed. The short external rotators, piriformis, and posterior capsule were repaired through drill holes in the greater trochanter using #2 Vicryl. The fascia was run with a looped #1 PDS. The subcutaneous layer was closed with #1 PDS. The dermal layer was closed with 2-0 Vicryl. Zip line was used for the skin followed by a Silverlon dressing. A compressive dressing was then placed. The patient was then rolled supine. Leg lengths were rechecked and were symmetric. An abduction pillow was placed. Sedation was lifted and the patient was transferred to recovery room in stable condition. Summary of implants: Depuy Marvell Gription Acetabular Shell Sector Cup, 50 mm outer diameter Marvell Cancellous bone screw, 6.5 x 30 mm Marvell Altrx Polyethylene Acetabular Liner, Neutral, with a 32 mm inner diameter DePuy Mesa Femoral stem with Porocoat, 12/14 taper, size 3 high offset 32 mm ceramic femoral head with +1 offset Postoperative course: Patient will be admitted to the hospital from the recovery room. Patient will be weightbearing as tolerated with posterior hip precautions. Aspirin for DVT prophylaxis I attest to the content of the Intraoperative Record and any orders documented therein. Any exceptions are noted below.
--- NOTE | 2021-02-01 13:25 | XRay Report ---
XR pelvis 1-2V routine HISTORY: 80 years-old Female Post Surgical right hip total joint arthroplasty COMPARISON: Pelvis radiograph 01/10/2021 TECHNIQUE: AP view of the pelvis FINDINGS: Right hip total joint arthroplasty demonstrates satisfactory alignment. No acute fracture or unexpect ed opaque foreign body. Expected postsurgical soft tissue swelling with deep tissue air. IMPRESSION: Right hip total joint arthroplasty with expected postoperative changes. ACT 112: Negative or not required by law. The above report was generated using voice recognition software. It may contain grammatical, syntax o r spelling errors. Electronically signed by: Olman Jernigan M.D. 02/01/2021 1:24 PM
--- NOTE | 2021-02-01 14:09 | Anesthesiology Progress Note ---
Date of Service February 01, 2021 Anesthesia Post Procedure Vital Signs Vital Signs: Temp Pulse Pulse Resp BP Pulse Ox 02/01/21 14:00 66 21 105/64 95 02/01/21 13:50 97.3 F L 59 L 14 101/74 95 02/01/21 13:40 77 13 111/58 L 93 02/01/21 13:30 69 19 102/70 93 02/01/21 13:20 63 16 107/55 L 97 02/01/21 13:10 72 18 123/59 L 98 02/01/21 13:01 97.0 F L 69 16 92/52 L 96 02/01/21 09:03 98.2 F 63 20 172/64 H 97 02/01/21 08:24 98.4 F 70 20 163/78 H 95 Pain Intensity Right Leg: Pain Intensity: 2 Transfer of Care Handoff Completed per policy Notes Mental Status: alert / awake / arousable and participated in evaluation Patient Amnestic to Procedure: Yes Nausea / Vomiting: adequately controlled Pain: adequately controlled Airway Patency, RR, SpO2: stable & adequate BP & HR: stable & adequate Hydration State: stable & adequate Neuraxial Anesthesia: was administered and sensory block is resolving Anesthetic Complications: no major complications apparent and Pt Satisfied with anesthetic care
[2021-02-01] MEDS: SODIUM CHLORIDE 0.9% 1000ML 1,000 ML IV SCH (14:55)
[2021-02-01] MEDS: ACETAMINOPHEN 500 MG TAB PO SCH ×2 (15:38→21:44)
[2021-02-01] MEDS: KETOROLAC TROMETHAMINE 15 MG/ML VIAL IV SCH ×2 (16:45→21:44)
[2021-02-01] MEDS: Scopolamine CHECK PATCH PLACEMENT SCH ×2 (16:45→23:25)
[2021-02-01] MEDS ORDERED: TRANEXAMIC ACID / 0.7% NACL 1,000 MG/100 ML BAG IV SCH (19:01)
[2021-02-01] MEDS: ceFAZolin 2000MG 2,000 MG/15 ML SYR IV SCH (20:30)
[2021-02-01] MEDS: DOCUSATE SODIUM 100 MG CAP PO SCH (20:30)
[2021-02-01] MEDS ORDERED: CHOLECALCIFEROL 1,000 UNITS 25 MCG TAB PO SCH (21:00)
[2021-02-01] MEDS ORDERED: SENNA 8.6 MG TAB PO SCH (21:00)
[2021-02-01] MEDS ORDERED: ATENOLOL 25 MG TABLET PO SCH (21:00)
[2021-02-01] MEDS ORDERED: ASPIRIN 81 MG ECTAB PO SCH (21:00)
[2021-02-02] MEDS: KETOROLAC TROMETHAMINE 15 MG/ML VIAL IV SCH ×3 (03:09→11:24)
[2021-02-02] MEDS: ceFAZolin 2000MG 2,000 MG/15 ML SYR IV SCH (03:09)
[2021-02-02] MEDS: SODIUM CHLORIDE 0.9% 1000ML 1,000 ML IV SCH (03:18)
[2021-02-02] MEDS: ACETAMINOPHEN 500 MG TAB PO SCH (04:58)
[2021-02-02 06:07] LABS: Hemoglobin 11.7 g/dL (12.0-16.0); Immature Granulocytes # (auto) 0.03 K/uL (0.00-0.02); Immature Granulocytes % (auto) 0.2 %; Lymphocytes # (auto) 1.12 K/uL (1.2-3.4); Lymphocytes % (auto) 7.3 %; Mean Corpuscular Hemoglobin 29.8 pg (25-34); Mean Corpuscular Hgb Conc 33.4 g/dL (32-36); Mean Corpuscular Volume 89.3 fL (80-100); Mean Platelet Volume 8.9 fL (7.4-10.4); Monocytes # (auto) 0.68 K/uL (0.11-0.59); Monocytes % (auto) 4.4 %; Neutrophils % (auto) 88.1 %; Platelet Count 285 K/uL (130-400); RDW Coefficient of Variation 13.5 % (11.5-14.5); RDW Standard Deviation 44.5 fL (36.4-46.3); Red Blood Count 3.92 M/uL (4.2-5.4); White Blood Count 15.43 K/uL (4.8-10.8)
[2021-02-02 06:33] LABS: BUN Creatinine Ratio 24.3 (10-20); Calcium 8.6 mg/dl (8.5-10.1); Creatinine Clr Calc Pharmacy 37.8 ml/min; Est GFR (African American) 57.6; Est GFR (Non-African American) 49.7; Potassium 4.4 mmol/L (3.5-5.1)
[2021-02-02] MEDS ORDERED: dexAMETHasone 4 MG TAB PO SCH (08:00)
[2021-02-02] MEDS: DOCUSATE SODIUM 100 MG CAP PO SCH (08:20)
[2021-02-02] MEDS: Scopolamine CHECK PATCH PLACEMENT SCH (08:21)
[2021-02-02] MEDS ORDERED: MULTIVITAMIN TAB PO SCH (09:00)
[2021-02-02] MEDS ORDERED: ASPIRIN 81 MG ECTAB PO SCH (09:00)
--- NOTE | 2021-02-02 09:29 | Orthopedic Progress Note ---
Date of Service February 02, 2021 Assessment & Plan (1) S/P total hip arthroplasty: Total hip precautions Weightbearing as tolerated with walker assistance PT/OT DVT prophylaxis with NONI stockings and aspirin Pain control with p.o. medications Abduction pillow use x6 weeks Ice with EZ WRAP Keep dressing in place until 2-week follow-up Plan on discharge home today with in-home physical therapy Follow-up At [facility] orthopedics as previously instructed With questions contact our clinic at Admission and Anticipated Discharge Date Admission Date: February 01, 2021 Subjective This 80-year-old female is day 1 status post right total hip arthroplasty. She states that the pain medication is very effective at controlling her pain because she has none at this point. Patient states she is very pleased with the results of her surgery. Currently she denies numbness or tingling in the right lower extremity. She also has no complaint of chest pain, shortness of breath, fever, chills, sweats, lethargy, nausea, vomiting or diarrhea. She is hopeful to be able to go home later today. Review of Systems Review of Systems: All systems reviewed & are unremarkable except as noted in Subjective Physical Exam Physical Exam: Right hip: Patient is able to perform a straight leg raise test. She is able to easily flex her knee to 90 degrees. Logroll test is negative. She experiences no pain with light passive internal or external hip rotation. She is able to actively dorsi and plantarflex her foot. Quad strength is 3 out of 5. Peripheral pulses are 2+. Capillary fill is less than 2 seconds. Patient is neurovascularly intact in the right lower extremity. Results & Data ([facility]) Vital Signs (Past 12 Hours) Vital Signs Temp Pulse Resp BP Pulse Ox 02/02/21 07:24 36.8 C 59 L 16 101/59 L 92 02/02/21 02:45 36.5 C 55 L 16 111/62 92 02/01/21 23:32 36.5 C 57 L 16 100/57 L 94 Laboratory Results 02/02/21 02/02/21 Range/Units 05:39 05:39 WBC 15.43 H (4.8-10.8) K/uL RBC 3.92 L (4.2-5.4) M/uL Hgb 11.7 L (12.0-16.0) g/dL Hct 35.0 L (37-47) % MCV 89.3 (80-100) fL MCH 29.8 (25-34) pg MCHC 33.4 (32-36) g/dL RDW Std Deviation 44.5 (36.4-46.3) fL RDW Coeff of Yasir 13.5 (11.5-14.5) % Plt Count 285 (130-400) K/uL MPV 8.9 (7.4-10.4) fL Immature Gran % (Auto) 0.2 % Neut % (Auto) 88.1 % Lymph % (Auto) 7.3 % [place] % (Auto) 4.4 % Eos % (Auto) 0.0 % Baso % (Auto) 0.0 % Neut # (Auto) 13.60 H (1.4-6.5) K/uL Lymph # (Auto) 1.12 L (1.2-3.4) K/uL [place] # (Auto) 0.68 H (0.11-0.59) K/uL Eos # (Auto) 0.00 (0-0.5) K/uL Baso # (Auto) 0.00 (0-0.2) K/uL Immature Gran # (Auto) 0.03 H (0.00-0.02) K/uL Sodium 140 (136-145) mmol/L Potassium 4.4 (3.5-5.1) mmol/L Chloride 111 H (98-107) mmol/L Carbon Dioxide 24 (21-32) mmol/L Anion Gap 5.0 (3-11) BUN 26 H (7-18) mg/dl Creatinine 1.07 (0.6-1.2) mg/dl Est Cr Clr Drug Dosing 37.8 ml/min Est GFR ( Amer) 57.6 Est GFR (Non-Af Amer) 49.7 BUN/Creatinine Ratio 24.3 H (10-20) Glucose 120 H (70-99) mg/dl Calcium 8.6 (8.5-10.1) mg/dl
--- NOTE | 2021-02-02 09:39 | Discharge Summary ---
Date of Service February 02, 2021 Admission HPI Per Admitting Provider History of Present Illness (including history relevant to procedure): This 80-year-old female presents the clinic today for preoperative history and physical. The patient is very active shoveling snow, mowing lawn, and ex ercising. She [place]. She says about a 2 and half ago, she started getting pain in her groin. This is progressively worsening. Over the past year, she has developed some burning in the medial aspect of her right thigh. She says a couple times per week when she is walking, she will feel like her leg is going to give out. It also bothers her getting up from sitting posit ion. She has some difficulty navigating steps. She has continued to be active despite this. She takes Advil as she has found that this is more effective than Tylenol. However, she does not like to take a lot of medications, so only does this sparingly. She has been to physical therapy in the past, but felt like that was not really helping. Since the last visit, she says her symptoms are worsening. Continues to have predominantly groin pain. It is affecting her activities of daily living. She would like to proceed with a hip replacement. Review Of Systems: A 14 point review systems performed is unremarkable except for those things previously stated in the HPI and past medical history. Past Medical History: Problems: Pre-op exam Arthritis of right hip Plica of knee Right knee pain Hypertension Hyperlipidemia Heart murmur Procedure History Procedure Procedure Date Comments Cataract surgery 2019 - bilateral Appendectomy 1956 Allergies and Sensitivities: NKA Family history: Heart disease, hypertension, cancer and diabetes Social history: Completely unremarkable Current Home Meds: (Last Updated 01/10 11:03) aspirin (Aspirin Low Strength 81 mg oral enteric coated tablet) 81 mg PO Daily atenolol (atenolol 25 mg oral tablet) 25 mg PO Daily atorvastatin (Lipitor 20 mg oral tablet) 40 mg PO Daily cholecalciferol (Vitamin D3) takes one daily ibuprofen lisinopril Initial Wt: 01/10 68.0 kg 150 lb Admission Exam Per Admitting Provider Physical Exam: (relevant to the procedure, including heart and lung evaluation) General: Alert and oriented x3 with proper grooming and hygiene Eyes: Pupils are equal reactive to light with accommodation. Extraocular movements are intact Throat: Deferred due to COVID-19 precautions Cardiac: Regular rate and rhythm with a grade 1/6 holosystolic murmur heard best in the left upper sternal border Lungs: Clear to auscultation throughout with no wheezing, rales or rhonchi Abdomen: Mildly obese, nondistended, nontender with normal active bowel sounds Extremities: Right hip exam; hip flexion up to 120 degrees, external rotation is limited in seated position to 30 degrees, and internal rotation of 15 degrees. Neurovascular intact. Neuro: Cranial nerves II through XII are intact with no motor or sensory deficit Skin: Normal in appearance with no open skin areas or discharge Principal Diagnosis Right hip osteoarthritis Discharge Exam Right hip: Patient is able to perform a straight leg raise test. She is able to easily flex her knee to 90 degrees. Logroll test is negative. She experiences no pain with light passive internal or external hip rotation. She is able to actively dorsi and plantarflex her foot. Quad strength is 3 out of 5. Peripheral pulses are 2+. Capillary fill is less than 2 seconds. Patient is neurovascularly intact in the right lower extremity. Discharge Data Allergies Allergy/AdvReac Type Severity Reaction Status Date / Time amoxicillin AdvReac Mild Nausea Verified 02/01/21 08:19 Procedures Performed Operation Date: 02/01/21 10:35 Actual Procedures p Right Total Hip Arthroplasty(Right) - George Wolf MD Operation Date: 02/01/21 12:35 <No data on this case meets the specified criteria> Hospital Course (1) S/P total hip arthroplasty: Patient had an uneventful overnight stay following right total hip arthrop lasty. Patient states she is very pleased with her surgery. She is planning on discharge home later this morning with in-home physical therapy for the first 2 weeks postoperatively. Total hip precautions Weightbearing as tolerated with walker assistance PT/OT DVT prophylaxis with NONI stockings and aspirin Pain control with p.o. medications Abduction pillow use x6 weeks Ice with EZ WRAP Keep dressing in place until 2-week follow-up Plan on discharge home today with in-home physical therapy Follow-up At [facility] orthopedics as previously instructed With questions contact our clinic at Total Time Total Time Spent Total Time Spent (In Minutes): 20 minutes Total Time Includes: Examination of the Patient, Discharge Planning and Medication Reconciliation Discharge Plan Discharge Items Patient Disposition: Home - Home Health Services Reason For Visit: Right Hip Arthritis Discharge Diagnosis: Right Hip Osteoarthritis Activity: As commented below Lifting: None Bathing: Keep incision dry Bathing Comment: May shower tomorrow Sexual Activity: Wait until after follow-up appointment Exercise/Sports: Wait until after follow-up appointment Driving/Machine Use: No driving until cleared by residential treatment specialist Weightbearing: Right weightbearing Weightbearing Comment: as tolerated with walker assistance Non-emergency contact: Primary Care Provider Call non-emergency contact if: you have any medication questions, your pain is not controlled, your temperature is above 101.5, your wound has increased drainage and your wound pain has increased Follow-up/Referrals: Bryce Finn MD [Primary Care Provider] - Diet: Regular Addtl Attending Provider Instructions: Post-operative Instructions Dear Patient and Family/Friends, Before you are discharged from the hospital, it is important to know what to exp ect when you get home after surgery. To that end, we have created this sheet of discharge instructions which covers many commonly asked questions. Make sure you go through this sheet in its entirety with your nurse before you are discharged. Please note that we will go over the specifics of your surgery and recovery when you return for your first post-operative visit. Sincerely, Dr. Wolf Medications 1. Oxycodone 5 mg: take 1-2 tabs every 4-6 hours as needed for pain control. A prescription for 30 tablets will be sent to your pharmacy. 2. Diclofenac Sodium 75 mg: take 1 tab twice daily for 30 days post operatively for pain and inflammation relief. A prescription with 1 refill will be sent to your pharmacy. 3. Aspirin 81 mg: take 1 tab twice daily for 30 days post operatively for blood clot prevention. Please purchase. 4. Extra Strength Tylenol 500 mg: take 2 tabs every 6 hours as needed for additional pain relief. Please purchase. Pain Expect to be in a fair amount of pain after surgery. Remember, our goal is not to eliminate your pain, but to make it tolerable. It is a good idea to stay ahead of your pain by taking the medications you were prescribed once you get home. Typically, the pain starts improving 3-7 days after surgery. You should start weaning off the narcotic pain medication (oxycodone, hydrocodone, hydromorphone, morphine) as soon as your pain improves. Please call our office if your pain is not adequately controlled. Ice Ice your operative site at least 5 times a day for 15-30 minutes at a time. Make sure you have a thin cloth between the ice or cooling unit and your skin to prevent lara bite. This is especially important if you received a nerve block. Continue icing your operative site for the first 5-7 days after surgery, then as needed. Diet/Nausea/Vomiting Start by drinking clear liquids and eating crackers. If you can tolerate this, then you may resume your normal diet. If you feel nauseated or vomit, take Zofran/ondansetron (if prescribed). Please call our office if you have intractable nausea or vomiting, or, if after hours, you may go to the Emergency Room for help. Constipation Constipation is a common side effect of narcotic pain medication. If you have not had a bowel movement within 2 days after surgery, we recommend purchasing an over the counter laxative such as Milk of Magnesia, Dulcolax, or Miralax from a local pharmacy, and taking it as instructed. Call our clinic if any questions. Nerve block The anesthesia team sometimes places a nerve block to help with post-operative pain control. This results in significant numbness and inability to move the extremity. The nerve block usually wears off in 8-12 hours, but sometimes can last up to 24 hours. Please call our office if you are still unable to move your extremity after 24 hours, unless you received a pain pump to take home. Nerve blocks typically wear off quickly, so start taking pain medication as soon as you start feeling soreness near your surgical site. Weight bearing and Range of Motion. Do not bear any weight through your operative extremity immediately after surgery. If you had upper extremity surgery, do not lift anything with that arm. If you are in a knee brace, keep it locked in place until your follow-up. We will discuss your weight bearing, range of motion, and lifting restrictions in detail at your first post-operative appointment. Continuous Passive Motion (CPM) Machine If you were prescribed a CPM machine, it will start after your first post- operative appointment, at which time we will give you instructions on the range of motion settings and duration of treatment Physical therapy You will be given a prescription for physical therapy or occupational therapy at your first post-operative appointment. Typically, patients start therapy within 1 week of surgery Wound care and showering We will inspect your wound at your first post-operative visit, and may do a dr skinner change at that time. Most patients will be in a water-proof dressing that is removed 14 days after surgery. It is normal to see some dried blood on the dressing. Do not remove your dressing, paper strips or sutures yourself unless you are given permission. Showering is allowed the day after surgery. Do not scrub or remove any dressings. The wound should not be submerged underwater (i.e. in a bathtub or pool) until 4 weeks after surgery NONI stockings If you were given white stockings, these are to be worn at all times except to shower (on both legs) for the first 2 weeks after surgery. Driving You may not drive while taking narcotic pain medication or while in a cast, splint, sling or brace. You, the patient, need to make the final determination about when you are safe to drive, however, the earliest you may consider driving after surgery is below: Hand/Wrist/Elbow Surgery: 3 days Shoulder Surgery: 2 weeks Hip,/Knee/Ankle Surgery: 4 weeks Fracture repair: 6 weeks Return to Work Your return to work depends on what surgery was done and what type of work you do. Please bring any paperwork your employer needs completed to your first post-operative visit. Also, bring a description of your job duties, as this helps us to understand what risks you may face at work. Travel Avoid long distance travel (greater than 1 hour) in airplanes and cars for the first 6 weeks after surgery. If you must travel, you need to have a Doppler ultrasound done before you travel to rule out a blood clot in your legs. Follow-up You should have a follow-up appointment already scheduled 1-2 days after surgery. If not, please contact our office to make this appointment before you leave the hospital. When to call the office It is normal to have swelling and bruising in the limb that was operated on. This will improve with time. It is also normal to have fevers for the first 2 days after surgery. Reasons you should call your doctor include: Uncontrolled pain; Nausea, vomiting, or constipation that does not improve with medication; Fevers over 101.5, chills, sweats; Drainage or bleeding from the wound; Foul odor; Spreading areas of redness; Any other concerns Pending Studies at Discharge: No Stand-Alone Forms: My [facility] Medications and DC Order Prescriptions: New oxycodone 5 mg tablet 5 mg PO Q4H Qty: 30 RF: 0 diclofenac sodium 75 mg tablet,delayed release (DR/EC) 75 mg PO BID 30 Days Qty: 60 RF: 1 Continued atenolol 25 mg tablet 25 mg PO HS Qty: 90 RF: 3 cholecalciferol (vitamin D3) 2,000 unit tablet 2,000 units PO HS Qty: 30 RF: 0 Changed aspirin [Aspirin Low Dose] 81 mg Tablet,Delayed Release (Dr/Ec) 81 mg PO BID Qty: 0 RF: 0 acetaminophen [Tylenol] 325 mg Capsule 500 mg PO Q6H PRN (Reason: Pain) Qty: 0 RF: 0 Discharge Orders: Discharge Order (Routine); Ordered 02/02/21 Ordered By: Nicholas Chandler Admission Data Admit Date/Time: 02/01/21 12:59 Attending Provider: George Wolf Admit Provider: George Wolf Primary Care Provider: Bryce Finn Other Providers: [facility],Home Healthcare
[2021-02-02] MEDS ORDERED: CeleBREX 200 MG CAP PO SCH (21:00)
== END 2021-02-02 13:04 | disposition home health service (06) ==
LOC: ASU 07:51 → 3E 07:51